=== PATIENT | female | born 1960 ===

== ENCOUNTER 2017-06-25 18:49 | Emergency (ER) | payer SELFPAY ==
[2017-06-25 18:58] VITALS: BP 155/91; PULSE 89; RESP 16; TEMP 98.2; O2SAT 99
--- NOTE | 2017-06-25 19:39 | ED PDOC ---
HPI: Skin/Bite Injury Time Seen by Provider: 06/25/17 19:26 Chief Complaint (Nursing): Abnormal Skin Integrity Chief Complaint (Provider): Rash - Right buttocks History Per: Patient History/Exam Limitations: no limitations Current Symptoms Are (Timing): Still Present Additional Complaint(s): PT states she had some discomfort in the area prior to the rash. No similar in the past. PT does not have shingles vaccine. Past Medical History Reviewed: Historical Data, Nursing Documentation, Vital Signs Vital Signs: Last Vital Signs Temp 98.2 F 06/25/17 18:56 Pulse 89 06/25/17 18:56 Resp 16 06/25/17 18:56 BP 155/91 H 06/25/17 18:56 Pulse Ox 99 06/25/17 18:56 - Medical History PMH: Asthma Denies: Chronic Kidney Disease - Surgical History Surgical History: Appendectomy, Cholecystectomy - Family History Family History: States: Unknown Family Hx - Home Medications Home Medications: Ambulatory Orders Medication Instructions Recorded oxyCODONE/Acetaminophen [Percocet 1 tab PO Q6H PRN 05/04/15 5/325 mg Tab] Budesonide/Formoterol Fumarate 2 aer IH Q12 #1 aer 05/08/15 [Symbicort] Ipratropium [Atrovent HFA] 1 puff IH Q6 PRN #0 inhaler 05/08/15 Methylprednisolone [Medrol Dose 4 mg PO DAILY #21 mg 05/08/15 Pack (21 tabs)] Gabapentin [Neurontin] 100 mg PO TID #30 capsule 06/25/17 valACYclovir [Valtrex] 1 gm PO BID #14 tab 06/25/17 - Allergies Allergies/Adverse Reactions: Allergies Allergy/AdvReac Type Severity Reaction Status Date / Time codeine Allergy Chest Pain Verified 05/08/15 06:30 Penicillins Allergy SWELLING Verified 05/08/15 06:30 Physical Exam - Reviewed Nursing Documentation Reviewed: Yes Vital Signs Reviewed: Yes - Physical Exam Appears: Positive for: Well, Non-toxic, No Acute Distress Head Exam: Positive for: ATRAUMATIC, NORMAL INSPECTION, NORMOCEPHALIC Skin: Positive for: Warm. Negative for: Normal Color (vesicular rash right buttocks (T3-T4)) Eye Exam: Positive for: Normal appearance ENT: Positive for: Normal ENT Inspection Neck: Positive for: Normal Respiratory: Negative for: Accessory Muscle Use, Respiratory Distress Gastrointestinal/Abdominal: Positive for: Normal Exam, Bowel Sounds, Soft Back: Positive for: Normal Inspection Extremity: Positive for: Normal ROM Neurologic/Psych: Positive for: Alert, Oriented - ECG O2 Sat by Pulse Oximetry: 99 Disposition - Clinical Impression Clinical Impression: Shinbrunaes - Patient ED Disposition Is Patient to be Admitted: No - Disposition Disposition: Routine/Home Disposition Time: 19:39 Condition: GOOD Prescriptions: Gabapentin [Neurontin] 100 mg PO TID #30 capsule valACYclovir [Valtrex] 1 gm PO BID #14 tab Instructions: Karina (DC) Forms: [employer] (Swedish), [facility] ED School/Work Excuse
== END 2017-06-25 19:56 | disposition home or self-care (01) ==
LOC: H.ER 18:49
DX: B02.9 Zoster without complications (principal); J45.909 Unspecified asthma, uncomplicated; Z88.0 Allergy status to penicillin

== ENCOUNTER 2017-09-23 14:15 | Emergency (ER) | payer OTHER ==
[2017-09-23 14:22] VITALS: TEMP 98.4
[2017-09-23] MEDS ORDERED: Sodium Chloride 0.9% 1,000 ML IV STA (14:51)
--- NOTE | 2017-09-23 15:04 | ED PDOC ---
HPI: General Adult Time Seen by Provider: 09/23/17 14:31 Chief Complaint (Nursing): Back Pain Chief Complaint (Provider): Back Pain History Per: Patient History/Exam Limitations: no limitations Onset/Duration Of Symptoms: Hrs (x2 ) Current Symptoms Are (Timing): Still Present Additional Complaint(s): 57 year old female with a history of Burkitt lymphoma (in remission) presents to the ED with sharp, right sided neck pain, facial discomfort and rib pain for the last 2 hours. 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 It hurts to sit up. She also complains of right side knee pain. Denies nausea, vomiting, diarrhea, dysuria and hematuria. PMD: none provided Past Medical History Reviewed: Historical Data, Nursing Documentation, Vital Signs Vital Signs: Last Vital Signs Temp 98.4 F 09/23/17 14:19 Pulse 88 09/23/17 14:19 Resp 16 09/23/17 14:19 BP 146/78 09/23/17 14:19 Pulse Ox 98 09/23/17 16:19 - Medical History PMH: Asthma Denies: Chronic Kidney Disease Other PMH: Burkitt lymphoma (in remission) - Surgical History Surgical History: Appendectomy, Cholecystectomy, Tonsillectomy Other surgeries: adenoidectomy and right ankle surgery - Family History Family History: States: Unknown Family Hx - Social History Current smoker - smoking cessation education provided: No Ex-Smoker (has not smoked in the last 12 months): Yes Alcohol: Social Drugs: Denies - Home Medications Home Medications: Ambulatory Orders Medication Instructions Recorded oxyCODONE/Acetaminophen [Percocet 1 tab PO Q6H PRN 05/04/15 5/325 mg Tab] Budesonide/Formoterol Fumarate 2 aer IH Q12 #1 aer 05/08/15 [Symbicort] Ipratropium [Atrovent HFA] 1 puff IH Q6 PRN #0 inhaler 05/08/15 Methylprednisolone [Medrol Dose 4 mg PO DAILY #21 mg 05/08/15 Pack (21 tabs)] Gabapentin [Neurontin] 100 mg PO TID #30 capsule 06/25/17 valACYclovir [Valtrex] 1 gm PO BID #14 tab 06/25/17 Cyclobenzaprine [Flexeril] 10 mg PO TID #15 tab 06/06/18 Naproxen [Naprosyn] 500 mg PO BID PRN #20 tablet 09/23/17 - Allergies Allergies/Adverse Reactions: Allergies Allergy/AdvReac Type Severity Reaction Status Date / Time codeine Allergy Chest Pain Verified 09/23/17 14:19 Penicillins Allergy SWELLING Verified 09/23/17 14:19 Review of Systems ROS Statement: Except As Marked, All Systems Reviewed And Found Negative Gastrointestinal: Positive for: Abdominal Pain (right side rib pain) Musculoskeletal: Positive for: Neck Pain (right side ) Physical Exam - Reviewed Nursing Documentation Reviewed: Yes Vital Signs Reviewed: Yes - Physical Exam Appears: Positive for: No Acute Distress, Uncomfortable (moderate discomfort) Head Exam: Positive for: ATRAUMATIC, NORMAL INSPECTION, NORMOCEPHALIC Skin: Positive for: Normal Color, Warm, Dry Eye Exam: Positive for: EOMI, Normal appearance, PERRL Neck: Positive for: Decreased ROM (tenderness to palpation on right paracervical area) Cardiovascular/Chest: Positive for: Regular Rate, Rhythm. Negative for: Murmur Respiratory: Positive for: Normal Breath Sounds. Negative for: Respiratory Distress Gastrointestinal/Abdominal: Positive for: Tenderness (right lower rib cage ), Other (subcostal scar present). Negative for: Distended (or edema), Guarding, Rebound Back: Positive for: R CVA Tenderness Extremity: Positive for: Normal ROM. Negative for: Deformity Neurologic/Psych: Positive for: Alert, Oriented. Negative for: Motor/Sensory Deficits - Laboratory Results Result Diagrams: 09/23/17 15:08 09/23/17 15:08 - ECG O2 Sat by Pulse Oximetry: 98 (RA) Pulse Ox Interpretation: Normal - Radiology X-Ray: Interpreted by Me, Viewed By Me X-Ray Interpretation: No Acute Disease Medical Decision Making Medical Decision Making: Time: 14:50 Impression: most likely muscular. Possibly kidney stones Initial Plan: --EKG --CMP --Urine dip --CBC --Chest x-ray --NS IV 1,000 mls/hr --Toradol 30 mg IV Scribe Attestation: Documented by Fern Burkett, acting as a scribe for Angelica Joe MD Provider Scribe Attestation: All medical record entries made by the Scribe were at my direction and personally dictated by me. I have reviewed the chart and agree that the record accurately reflects my personal performance of the history, physical exam, medical decision making, and the department course for this patient. I have also personally directed, reviewed, and agree with the discharge instructions and disposition. Disposition - Clinical Impression Clinical Impression: Muscle strain - Patient ED Disposition Is Patient to be Admitted: No Doctor Will See Patient In The: Office Counseled Patient/Family Regarding: Diagnosis, Need For Followup, Rx Given - Disposition Referrals: [facility] [Outside] [facility] [Outside] [facility] [Outside] Disposition: Routine/Home Disposition Time: 16:32 Condition: IMPROVED Prescriptions: Cyclobenzaprine [Flexeril] 10 mg PO TID #15 tab Naproxen [Naprosyn] 500 mg PO BID PRN #20 tablet PRN Reason: Pain, Moderate (4-7) Instructions: Muscle Strain Forms: [employer] (Azeri) - POA Present On Arrival: None
[2017-09-23 15:25] LABS: BASO # 0.1 K/uL (0.0-0.2); BASO % 1.1 % (0.0-2.0); EOS # 0.2 K/uL (0.0-0.7); EOS % 1.9 % (0.0-4.0); HEMOGLOBIN 16.4 g/dL (12.0-16.0); LYMPH # 2.8 K/uL (1.0-4.3); LYMPH % 35.9 % (20.0-40.0); MEAN CELL VOLUME 91.6 fl (81.0-99.0); MEAN CORPUSCULAR HEMOGLOBIN 30.9 pg (27.0-31.0); MEAN CORPUSCULAR HGB CONC 33.8 g/dL (33.0-37.0); MEAN PLATELET VOLUME 8.1 fl (7.2-11.7); MONO # 0.5 K/uL (0.0-0.8); MONO % 6.6 % (0.0-10.0); NEUT # 4.3 K/uL (1.8-7.0); NEUT % 54.5 % (50.0-75.0); NRBC % 0.4 % (0.0-0.0); RBC 5.29 Mil/uL (3.80-5.20); WHITE BLOOD COUNT 7.9 K/uL (4.8-10.8)
[2017-09-23 15:37] LABS: ALB/GLOB RATIO 1.2 (1.0-2.1); ALBUMIN 4.4 g/dL (3.5-5.0); ALT/SGPT 36 U/L (9-52); AST/SGOT 34 U/L (14-36); BLOOD UREA NITROGEN 21 mg/dl (7-17); CALCIUM 10.2 mg/dL (8.4-10.2); GFR AFRICAN-AMERICAN > 60; GFR NON-AFRICAN AMERICAN > 60
[2017-09-23 16:42] LABS: SQUAMOUS EPITHIAL < 1 /hpf (0-5); URINE BILIRUBIN NEGATIVE (NEGATIVE); URINE BLOOD NEGATIVE (NEGATIVE); URINE CLARITY CLEAR (Clear); URINE COLOR STRAW (YELLOW); URINE GLUCOSE (UA) NEG (Normal); URINE LEUKOCYTE ESTERASE NEG Leu/uL (Negative); URINE PROTEIN NEGATIVE (NEGATIVE); URINE UROBILINOGEN 0.2-1.0 mg/dL (0.2-1.0)
--- NOTE | 2017-09-23 16:44 | RAD ---
HISTORY: right chest pain COMPARISON: 05/03/2015 TECHNIQUE: Chest PA and lateral FINDINGS: LUNGS: No active pulmonary disease. PLEURA: No significant pleural effusion identified. No pneumothorax apparent. CARDIOVASCULAR: Normal. OSSEOUS STRUCTURES: No significant abnormalities. VISUALIZED UPPER ABDOMEN: Surgical clips right upper quadrant similar to before OTHER FINDINGS: None. IMPRESSION: No active disease.
[2017-09-23 16:55] VITALS: BP 158/106; PULSE 81; RESP 18; O2SAT 100
--- NOTE | 2017-09-24 17:21 | CARD ---
APPROVED REPORT EKG Measurement Heart [id number] <Conclusion> Normal sinus rhythm Nonspecific T wave abnormality Abnormal ECG
== END 2017-09-23 17:05 | disposition home or self-care (01) ==
LOC: H.ER 14:15
DX: M54.9 Dorsalgia, unspecified (principal); J45.909 Unspecified asthma, uncomplicated; Z85.72 Personal history of non-Hodgkin lymphomas; Z87.891 Personal history of nicotine dependence; Z88.0 Allergy status to penicillin
CPT/HCPCS: 71046; 80053; 81003; 85025; 93005; 96360; 99284; J1885; J7030